=== PATIENT | female | born 1965 | race Caucasian/White ===

== ENCOUNTER 2020-10-28 17:47 | Emergency (ER) | payer OTHER ==
[~2020-10-28 17:47] MED LIST: BREO ELLIPTA 11 EACH PO; MACROBID100 MG PO; NEURONTIN300 MG PO; PERCOCET 7.5/321 TAB PO; PERCOCET PO; VENTOLIN HFA IN18 GM INH
== END 2020-10-28 20:09 | disposition home or self-care (01) ==
LOC: FER 17:47
DX: G89.29 Other chronic pain (principal); J44.9 Chronic obstructive pulmonary disease, unspecified; F17.210 Nicotine dependence, cigarettes, uncomplicated; Z85.41 Personal history of malignant neoplasm of cervix uteri; Z93.6 Other artificial openings of urinary tract status
CPT/HCPCS: 96372; 99283; J1100; J1885

== ENCOUNTER 2022-06-18 23:27 | Emergency (ER) | payer OTHER ==
[2022-06-19 01:18] LABS: BASOPHIL 0.3 % (0-2); EOSINOPHIL 1.6 % (0-5); HCT 39.4 % (37.0-47.0); HGB 12.7 g/dl (12.5-16.0); MCH 29.9 pg (25.0-31.0); MCHC 32.2 g/dL (32.0-36.0); MCV 92.7 fL (78.0-100.0); MONOCYTE 6.1 % (0-12); MPV 8.6 fL (6.0-9.5); NEUTROPHIL 85.5 % (41-80); NRBC 0; PLT 325 K/uL (150-400); RBC 4.25 M/uL (4.20-5.40); RDW 17.2 % (11.5-14.0); WBC 14.1 K/uL (4.0-10.5)
[2022-06-19 01:24] LABS: PROTHROMBIN TIME 12.9 SECONDS (11.9-13.9); PTT 33.4 SECONDS (24.9-34.6)
[2022-06-19 01:26] LABS: D-DIMER 2.67 ug/mLFEU (0.00-0.41)
[2022-06-19 01:31] LABS: BILIRUBIN - TOTAL 0.4 mg/dL (0.2-1.0); CREATININE 0.89 mg/dL (0.51-0.95); GLOBULIN (CALCULATION) 4.4 g/dL; TOTAL PROTEIN 6.4 g/dL (6.4-8.2)
[2022-06-19 06:50] LABS: BILIRUBIN NEGATIVE (NEGATIVE); BLOOD 3+ Ery/uL (NEGATIVE); CLARITY CLEAR (CLEAR); COLOR YELLOW (YELLOW); GLUCOSE (U) NORMAL (NORMAL); LEUKOCYTES 2+ Leu/uL (NEGATIVE); NITRITE POSITIVE (NEGATIVE); PROTEIN 2+ mg/dL (NEGATIVE); SPECIFIC GRAVITY 1.015 (1.001-1.030); UROBILINOGEN 0.2 mg/dL (0.2-1.0); pH 8.5 (5.0-9.0)
[2022-06-19 07:09] LABS: AMORPHOUS PHOSPHATE CRYSTALS MODERATE; BACTERIA 4+; TRIPLE PHOSPHATE CRYSTALS TRACE; URIC ACID CRYSTALS MODERATE
[2022-06-19 07:10] LABS: SULFONAMIDES CRYSTALS TRACE
[2022-06-19 09:31] LABS: CORONAVIRUS 2019 SARS-COV-2 NEGATIVE (NEGATIVE); INFLUENZA A NAA NEGATIVE (NEGATIVE)
== END 2022-06-19 10:35 | disposition other institution (70) ==
LOC: FER 23:27
PROVIDERS: Emergency Medicine; Internal Medicine
DX: I82.403 Acute embolism and thrombosis of unspecified deep veins of lower extremity, bilateral (principal); N39.0 Urinary tract infection, site not specified; Z28.310 Unvaccinated for COVID-19; Z20.822 Contact with and (suspected) exposure to COVID-19
CPT/HCPCS: 36415; 71045; 80053; 81001; 83605; 83880; 84484; 85025; 85379; 85610; 85730; 93005; 93970; J0696; J1644; J2270; J2405; Q9967; U0002